=== PATIENT | female | born 1990 | race Caucasian/White ===

== ENCOUNTER 2023-09-10 12:37 | Day surgery (SDC) | payer OTHER ==
[2023-09-08 14:57] VITALS: BMI 20.2
[2023-09-10 13:09] VITALS: RESP 18
[2023-09-10 14:25] VITALS: TEMP 98
[2023-09-10 14:29] VITALS: BP 94/65; PULSE 69
== END 2023-09-10 14:05 | disposition home or self-care (01) ==
LOC: FASU-ENDO 12:37
PROVIDERS: ATTEND Internal Medicine Gastroenterology
PROC: 0DBL8ZX Excision of Transverse Colon, Via Natural or Artificial Opening Endoscopic, Diagnostic (ICD-10-PCS; 2023-09-10)
PROC: 0DBP8ZX Excision of Rectum, Via Natural or Artificial Opening Endoscopic, Diagnostic (ICD-10-PCS; 2023-09-10)
PROC: 0DBM8ZX Excision of Descending Colon, Via Natural or Artificial Opening Endoscopic, Diagnostic (ICD-10-PCS; 2023-09-10)
PROC: 0DBK8ZX Excision of Ascending Colon, Via Natural or Artificial Opening Endoscopic, Diagnostic (ICD-10-PCS; principal; 2023-09-10 13:20)
DX: K92.1 Melena (principal); R19.4 Change in bowel habit; K62.89 Other specified diseases of anus and rectum; K64.1 Second degree hemorrhoids
CPT/HCPCS: 81025; 88305-TC